=== PATIENT | female | born 1935 | race Asian ===

== ENCOUNTER 2017-09-07 13:10 | Emergency (ER) | payer MEDICARE, MEDICAID ==
[~2017-09-07] VITALS: Ht 157.5 cm; Wt 54.4 kg
[2017-09-07] MEDS ORDERED: OXYBUTYNIN CHLOR5 M1 ORAL (13:18)
[2017-09-07] MEDS ORDERED: DONEPEZIL HCL10 M2 ORAL (13:18)
[2017-09-07] MEDS ORDERED: ANTI-DIARRHEA2 MG PO (13:18)
[2017-09-07] MEDS ORDERED: TRAMADOL HCL50 MG ORAL (13:18)
[2017-09-07] MEDS ORDERED: ZOCOR40 MG ORAL (13:18)
[2017-09-07] MEDS ORDERED: CYCLOBENZAPRINE10 MG ORAL (13:18)
[2017-09-07] MEDS ORDERED: PLAVIX75 MG ORAL (13:18)
[2017-09-07] MEDS ORDERED: RISACAL-D TABL1 EACH PO (13:18)
[2017-09-07] MEDS ORDERED: FAMOTIDINE20 MG ORAL (13:18)
--- NOTE | 2017-09-07 13:34 | Emergency Room Report ---
History of Present Illness General Chief Complaint: Syncope Source: Patient, Family Member, Medical Record Present Illness HPI 82-year-old female with pmhx of CAD on Plavix, p/w syncopal episode. Syncopal episode occurred after patient had a nerve ablation surgery for chronic leg pain. Patient was on stretcher, there is no head trauma. Patient currently awake and alert oriented x4. States that she does remember falling asleep. However cannot give clear history. No seizure-like activity. Patient had been eating and drinking yesterday normally. Has been n.p.o. since this morning to to the ablation surgery Denies sob, palpitations, or chest pain before event. Denies recent fever, chills, n/v/d. Allergies: Coded Allergies: No Known Allergies (Unverified , 09/07/17) Patient History Past Medical History: see triage record Past Surgical History: none Pertinent Family History: none Reviewed Nursing Documentation: PMH: Agreed, PSxH: Agreed Review of Systems All Other Systems: negative except mentioned in HPI Physical Exam Vital Signs Date Time Temp Pulse Resp B/P (MAP) Pulse Ox O2 Delivery O2 Flow Rate FiO2 09/07/17 13:05 98.1 60 16 156/75 98 Room Air Sp02 EP Interpretation: reviewed, normal General Appearance: alert, GCS 15, non-toxic, mild distress Head: normocephalic, atraumatic Eyes: bilateral eye normal inspection, bilateral eye PERRL, bilateral eye EOMI ENT: normal ENT inspection, normal pharynx, normal voice, moist mucus membranes Neck: normal inspection, full range of motion, supple Respiratory: normal inspection, lungs clear, normal breath sounds, no respiratory distress, no retraction, no wheezing, speaking full sentences, chest symmetrical Cardiovascular #1: normal inspection, regular rate, rhythm, no edema, normal capillary refill Cardiovascular #2: 2+ radial (R), 2+ radial (L) Gastrointestinal: normal inspection, non tender, soft, non-distended, no guarding Musculoskeletal: normal inspection, back normal, normal range of motion, non- tender Neurologic: normal inspection, alert, oriented x3, responsive, corporate travel counselor III-XII nml as tested, motor strength/tone normal, sensory intact, normal gait, speech normal Psychiatric: normal inspection, judgement/insight normal, memory normal Skin: normal inspection, normal color, no rash, warm/dry, well hydrated, normal turgor Medical Decision Making Diagnostic Impression: Primary Impression: Syncope ER Course 82-year-old female with syncopal episode DDX: Vasovagal vs. orthostatic / hypovolemic/dehydration vs. cardiac arrhythmia (SVT , Afib) vs. cardiac (, ACS) vs. PE vs. metabolic (hypoglycemia, hypoxia), vs neuro (seizure, CVA, intracranial bleed) possibly related to anesthetic drugs related to the procedure Plan: bgm, cbc, bmp, ekg, cxr consider IVF CT head was not performed at this time, there is no history of head trauma, and patient is neurologically intact ER course: Patient has remained stable during ED stay. No further syncopal episodes Pt has been aox4, ate sandwich, conversing with daughter, feels much better. VS have been normal. Pt will be staying with daughter at home. Disposition: Pt will be SD'ed to home. Strict return precautions d/w patient and daughter such as lethargy, fever chills, cp, sob, vomiting/diarrhea, dec oral intake. FU with pmd in 1 week Please note that this Emergency Department Report was dictated using [employer] js developer technology software, occasionally this can lead to erroneous entry secondary to interpretation by the dictation equipment EKG Diagnostic Results EP Interpretation: Yes Rate: normal Rhythm: NSR ST Segments: T. inversion noted in V5 and V6 only ASA given to patient: No Rhythm Strip EP Interpretation: Yes Rate: 60 Rhythm: NSR, no PVCs, no ectopy Chest X-ray CXR: Ordered: Yes 1 view Indication: Syncope EP interpretation: Yes Interpretation: No consolidation, no effusion, no PTX, no acute cardiopulmonary disease Impression: No acute disease Electronically signed by Joselyn Ang MD Last Vital Signs Date Time Temp Pulse Resp B/P (MAP) Pulse Ox O2 Delivery O2 Flow Rate FiO2 09/07/17 13:05 98.1 60 16 156/75 98 Room Air Joselyn Ang M.D. Sep 07, 2017 13:34
--- NOTE | 2017-09-07 13:41 | Diagnostic Imaging Report ---
Indication: Dyspnea Comparison: None A single view chest radiograph was obtained. Findings: Cardiomediastinal appearance is within normal limits for age. Aorta is calcified. Pulmonary vascularity is appropriate. The diaphragmatic contour is smooth and costophrenic angles are sharp. No pleural effusions are identified. The bones are osteopenic. Impression: No acute findings
[2017-09-07 13:43] VITALS: BP 137/53
[2017-09-07 14:23] LABS: BASOPHILS % (AUTO) 1.3 % (0.0-2.0); EOSINOPHILS % (AUTO) 1.6 % (0.0-3.0); HEMATOCRIT 42.1 % (37.0-47.0); HEMOGLOBIN 13.5 G/DL (12.0-16.0); LYMPHOCYTES % (AUTO) 24.2 % (20.0-45.0); MEAN CORPUSCULAR VOLUME 87 FL (80-99); NEUTROPHILS % (AUTO) 69.9 % (45.0-75.0); PLATELET COUNT 174 K/UL (150-450); RED BLOOD COUNT 4.84 M/UL (4.20-5.40); RED CELL DISTRIBUTION WIDTH 12.3 % (11.6-14.8); WHITE BLOOD COUNT 4.4 K/UL (4.8-10.8)
[2017-09-07 14:59] LABS: ALANINE AMINOTRANSFERASE 26 U/L (12-78); ALBUMIN 3.6 G/DL (3.4-5.0); ALBUMIN/GLOBULIN RATIO 0.9 (1.0-2.7); ALKALINE PHOSPHATASE 38 U/L (46-116); ANION GAP 7 mmol/L (5-15); ASPARTATE AMINO TRANSFERASE 31 U/L (15-37); BILIRUBIN,TOTAL 0.5 MG/DL (0.2-1.0); BLOOD UREA NITROGEN 14 mg/dL (7-18); CALCIUM 9.1 MG/DL (8.5-10.1); CARBON DIOXIDE 30 MMOL/L (21-32); CHLORIDE 103 MMOL/L (98-107); CREATININE 0.8 MG/DL (0.55-1.30); SODIUM 140 MMOL/L (136-145)
[2017-09-07 15:11] VITALS: BP 129/74
[2017-09-07 15:26] LABS: APPEARANCE,URINE CLEAR; BILIRUBIN, URINE NEGATIVE (NEGATIVE); COLOR,URINE PALE YELLOW; GLUCOSE, URINE (UA) NEGATIVE (NEGATIVE); KETONES,URINE 1+ (NEGATIVE); LEUKOCYTE ESTERASE ,URINE NEGATIVE (NEGATIVE); NITRITE,URINE NEGATIVE (NEGATIVE); PH,URINE 7 (4.5-8.0); PROTEIN,URINE NEGATIVE (NEGATIVE); UROBILINOGEN,URINE NORMAL MG/DL (0.0-1.0)
--- NOTE | 2017-09-08 14:52 | Cardiology Report ---
APPROVED REPORT EKG Measurement Heart [id number] Normal sinus rhythm Cannot rule out Anterior infarct, age undetermined Abnormal ECG
== END 2017-09-07 15:11 | disposition home or self-care (01) ==
LOC: EDBD 13:10 → EMR 13:45 → EDBEDREQ 15:09 → EMR 15:11 → CANBEDREQ 15:18
DX: R55 Syncope and collapse (principal)
CPT/HCPCS: 36415; 71045; 80053; 81003; 83880; 84484; 85025; 93005; 99284